=== PATIENT | male | born 1990 ===

== ENCOUNTER → 2016-04-20 | Outpatient (CLI) | payer OTHER ==
--- NOTE | 2016-04-20 15:53 | DIAGNOSTIC IMAGING REPORT ---
RIGHT ANKLE MIN 3 VIEWS CLINICAL HISTORY: Right Achilles tendon tear. COMPARISON: None FINDINGS: Alignment of the right ankle is anatomic. Talar dome is intact. There is no acute fracture. There is an os trigonum. Lateral view demonstrates thickening of the Achilles tendon with infiltration of the adjacent fat planes. IMPRESSION: 1. Suspected thickening of the Achilles tendon with infiltration of the adjacent fat planes. The findings raise the possibility of Achilles tendinopathy. Achilles tear is difficult to assess for by radiography. 2. No acute fracture or dislocation of the right ankle. Electronically signed by: Tristin Parmar M.D. 04/20/2016 3:51 PM Dictated Date/Time: 04/20/2016 3:49 PM
== END | disposition home or self-care (01) ==
LOC: C.RDSM 15:40
PROVIDERS: ATTEND Family Medicine
DX: S86.019A Strain of unspecified Achilles tendon, initial encounter (principal); X58.XXXA Exposure to other specified factors, initial encounter

== ENCOUNTER → 2016-04-27 | Day surgery (SDC) | payer OTHER ==
[2016-04-22 07:44] VITALS: Ht 190.5 cm; Wt 100.0 kg
[~2016-04-27] VITALS: Ht 190.5 cm; Wt 100.0 kg
[~2016-04-27] MED LIST: ATROPINE SULFATE 0.1 MG/ML 5ML SYR IV PRN; BUPIVACAINE/EPINEPHRINE 0.5% MPF 1:200,000 30 ML VIAL ONE; CEFAZOLIN 2000 MG/60 ML D5W IV SCH; DEXAMETHASONE SOD INJ 4 MG/ML VIAL IV PRN; DEXAMETHASONE SOD INJ 4 MG/ML VIAL ONE; EpHEDrine SULFATE INJ 50 MG/ML AMP IV PRN; FENTANYL CITRATE INJ 50 MCG/1 ML 2 ML VIAL IV PRN; FENTANYL CITRATE INJ 50 MCG/1 ML 2 ML VIAL ONE; GLYCOPYRROLATE INJ 0.2 MG/ML VIAL ONE; KETOROLAC TROMETHAMINE 30 MG/ML VIAL IV. PRN; LABETALOL HCL IV 5 MG/ML 20ML IV PRN; LACTATED RINGER'S 1000ML 1,000 ML IV SCH; LIDOCAINE HCL 1% 20 ML VIAL ONE; LIDOCAINE HCL 2% 2 ML VIAL (20MG/ML) ONE; METOCLOPRAMIDE HCL INJ 5 MG/ML 2 ML VIAL IV PRN; MIDAZOLAM HCL 1 MG/ML 2ML VIAL ONE; MoRPHine SULFATE 10 MG/ML CARP/VIAL IV PRN; MoRPHine SULFATE 2 MG/ML CARP IV PRN; MoRPHine SULFATE 4 MG/ML 1 ML CARP\\VIAL IV PRN; NEOSTIGMINE METHYLSULFATE 5 MG/5 ML SYR ONE; ONDANSETRON INJ 2 MG/ML 2 ML VIAL IV PRN; ONDANSETRON INJ 2 MG/ML 2 ML VIAL ONE; OXYCODONE/ACETAMINOPHEN 5-325 TAB PO PRN; PHENYLEPHRINE 100MCG/ML 5ML SYR IV PRN; PROPOFOL IV EMULSION 10 MG/ML 20 ML VIAL IV ONE; ROCURONIUM BROMIDE 10 MG/ML 5 ML VIAL ONE
--- NOTE | 2016-04-27 06:33 | History & Physical Bridge - SC ---
H&P Re-Evaluation Bridge Note: I have examined the patient, reviewed the History & Physical and in the interval since the performance of the History & Physical I have noted the following changes of clinical significance: No changes noted
--- NOTE | 2016-04-27 07:01 | Discharge Instructions-SurgCtr ---
Discharge Instructions Visit Reason for Visit: Right Achilles Rupture Discharge Discharge Diagnosis / Problem: S/P Right Achilles repair Discharge Goals Goal(s): Decrease discomfort, Improve function, Increase independence Activity Recommendations Activity Limitations: per Instructions/Follow-up section Lifting Limitations: none May Resume Sexual Activity: when tolerated Shower/Bathe: may shower/bathe in 3 days Driving or Machine Use: no limitations Weightbearing Status: Right non-weightbearing Anesthesia . Post Anesthesia Instructions: If you have had General Anesthesia or IV Sedation: * Do not drive today. * Resume driving when surgeon permits. * Do not make important decisions or sign legal documents today. * Call surgeon for: 1. Temperature elevations greater than 101 degrees F. 2. Uncontrollable pain. 3. Excessive bleeding. 4. Persistent nausea and vomiting. 5. Medication intolerance (nausea, vomiting or rash). * For nausea and vomiting use only clear liquids such as: tea, soda, bouillon until nausea subsides, then gradually increase diet as tolerated. * If you have any concerns or questions, call your surgeon's office. If physician is unavailable and it is an emergency, call 911 or go to the nearest emergency room. . Instructions / Follow-Up Instructions / Follow-Up See Dr. Grace in 10-15 days. Start PT in 2-3 days. Diet Recommendations Home Diet: resume previous diet Procedures Procedures Performed: s/p R Achilles repair Pending Studies Studies pending at discharge: no School Instructions Return To School: time frame (within 1 week) Medical Emergencies . Who to Call and When: Medical Emergencies: If at any time you feel your situation is an emergency, please call 911 immediately. . Non-Emergent Contact Non-Emergency issues call your: Surgeon Call Non-Emergent contact if: temperature is above 101.5, your pain is not controlled, wound has increased drainage, wound has increased redness . . "Provider Documentation" section prepared by Khurram Grace.
--- NOTE | 2016-04-27 09:23 | [facility] Post Operative Brief Note ---
Immediate Operative Summary Operative Date Apr 27, 2016. Pre-Operative Diagnosis Right Achilles Tendon Rupture Post-Operative Diagnosis Same Procedure(s) Performed Right Open Achilles Tendon Repair Surgeon Dr. Luciano Grace Natural Resource Officer Surgeon(s) Dr. Yamil Love Estimated Blood Loss 7 cc Findings Complete rupture Right Achilles Tendon. Fluids (cc crystalloids) 1000 Specimens None Drains n/a Anesthesia GET + Popliteal Block Complication(s) None Disposition Recovery Room / PACU (Stable)
--- NOTE | 2016-04-27 09:25 | [facility] Operative Report ---
Operative Report Operative Date Apr 27, 2016. Pre-Operative Diagnosis Right Achilles Tendon Rupture Post-Operative Diagnosis Same Procedure(s) Performed Right Open Achilles Tendon Repair Surgeon Dr. Luciano Grace Truck Body Repairer Surgeon(s) Dr. Yamil Love Estimated Blood Loss 7 cc Findings Complete rupture right Achilles tendon. Fluids (cc crystalloids) 1000 Specimens None Drains n/a Anesthesia GET + Popliteal Complication(s) None Disposition Recovery Room / PACU Implants FiberWire #2 Indications The patient is a 26 year old male who sustained a right Achilles tendon rupture while playing volleyball. After a lengthy discussion with the patient regarding her treatment options of conservative versus surgical intervention, the patient has elected to proceed with surgical intervention. The patient understands the risks of surgery, which include but are not limited to: bleeding , infection, re-operation, damage to nerves and arteries, continued pain, decreased level of activity, and DVT. The patient understands all of these instructions and explanations, all of their questions have been satisfactorily addressed. The patient has elected to proceed with surgery and the informed consent was signed. Description of Procedure The patient was taken to the Operating Room and after general anesthetic was administered a multidisciplinary time-out was performed identifying my initials on the right limb as the correct and operative limb, the patient was placed in the prone position on the operating table. Prior to the incision being made, 2 grams of intravenous Ancef was given. The right lower leg was prepped and draped in the standard sterile fashion. The Achilles tendon and defect were palpated and marked. The planned incision approximately 8 cm in length was marked just medial to the Achilles tendon. The incision was injected with a 50:50 mixture of 1% Lidocaine plain and 0.5% Marcaine with Epinephrine for a total of 10 cc. The planned incision was created exposing the peritenon and defect. The peritenon was incised to expose the ruptured Achilles tendon approximately 4 cm from its insertion on the calcaneus. There was fraying of both ends. Any adhesions were release to allow mobilization of the tendons ends. The wound was copiously irrigated. The anterior peritenon was released exposing the FHL, to allow easier closure of the posterior peritenon over the repaired tendon later. Placement of #2 FiberWire in [place] fashion with 4 strands in both ends was performed. The inferior limbs were tied first followed by the superior limbs in the standard fashion. The inferior limbs were tied first followed by the superior limbs in the standard fashion. One strand from each of the medial knots were tied together, then using a free needle the knot was docked inferiorly and a second strand was placed through the other limb of the tendon and tied inferiorly in an epi-tendinous type fashion, and tied. The sutures were cut short in the standard fashion. This was repeated on the lateral side, creating a stress 8 strand repair. The foot was able to be flexed easily to neutral without tension or gapping of the repair. Keanrs testing was now negative. The peritenon was closed sequentially with 2-0 Vicryl. The subcutaneous layer was closed with 3-0 Vicryl. The skin was closed with 3-0 Nylon in horizontal mattress fashion. Xeroform was placed over top, followed by 4x4's, ABD, sterile cast padding, and posterior splint. The sponge and needle counts were correct. Post-op Instructions: Pain medicine prescription was given pre-operatively to be taken as needed. The patient will follow up with me in 10-15 days. The patient will remain NWB RLE for 2 weeks. The patient will start rehab in 2 days and will have the splint removed and replaced with a cam boot and heel lift. I attest to the content of the Intraoperative Record and any orders documented therein. Any exceptions are noted below.
--- NOTE | 2016-04-27 09:55 | [facility] Operative Report ---
Operative Report Operative Date Apr 27, 2016. Pre-Operative Diagnosis Right Achilles Tendon Rupture Post-Operative Diagnosis Same Procedure(s) Performed Right Open Achilles Tendon Repair Surgeon Dr. Luciano Grace Menswear Salesperson Surgeon(s) Dr. Yamil Love, Mitesh Mrate PA-C Estimated Blood Loss 7 cc Findings same Fluids (cc crystalloids) 1000 Specimens None Drains none Anesthesia general, block Complication(s) None Disposition Recovery Room / PACU Implants none Indications sustained injury to right lower extremity, ultrasound obtained, surgery recommended, consents signed. Description of Procedure taken to the OR, prepped and draped I was present the entire case, please see Dr. Grace's op note for further detail. I attest to the content of the Intraoperative Record and any orders documented therein. Any exceptions are noted below.
[2016-04-27 11:20] VITALS: TEMP 36.5
--- NOTE | 2016-04-27 11:32 | Anesthesia Progress Nt - [facility] ---
Anesthesia Post Op Note Date & Time Apr 27, 2016 at 11:32 Vital Signs Pain Intensity: 0 Vital Signs Past 12 Hours Date Time Temp Pulse Resp B/P Pulse Ox O2 Delivery O2 Flow Rate FiO2 04/27/16 11:20 36.5 77 16 115/66 96 Room Air 04/27/16 11:13 137/77 04/27/16 11:11 71 20 04/27/16 11:11 70 20 97 04/27/16 11:10 75 21 04/27/16 11:10 75 21 97 04/27/16 11:08 138/72 04/27/16 11:06 79 12 98 04/27/16 11:06 74 12 99 04/27/16 11:05 36.4 77 17 133/72 98 Room Air 04/27/16 11:03 133/72 04/27/16 10:58 139/73 04/27/16 10:56 72 20 98 04/27/16 10:56 73 20 04/27/16 10:53 130/75 04/27/16 10:51 68 20 97 04/27/16 10:51 63 19 97 04/27/16 10:48 133/71 04/27/16 10:43 140/68 04/27/16 10:41 65 19 96 04/27/16 10:41 68 21 97 04/27/16 10:38 134/74 04/27/16 10:36 67 21 04/27/16 10:36 66 21 97 04/27/16 10:33 139/80 04/27/16 10:28 141/73 04/27/16 10:26 83 17 100 04/27/16 10:26 75 18 98 04/27/16 10:23 142/76 04/27/16 10:21 68 26 100 04/27/16 10:21 68 26 04/27/16 10:18 149/86 04/27/16 10:13 143/76 04/27/16 10:11 81 20 100 04/27/16 10:11 74 21 99 04/27/16 10:08 146/79 04/27/16 10:06 69 22 04/27/16 10:06 69 22 99 04/27/16 10:03 137/83 04/27/16 10:00 36.4 78 22 154/83 100 Mask 6 04/27/16 09:58 154/83 04/27/16 07:15 0 04/27/16 07:10 82 04/27/16 07:10 82 19 100 04/27/16 07:08 137/73 04/27/16 07:08 77 21 129/77 100 Mask 3 04/27/16 07:06 129/77 04/27/16 06:34 37.2 83 18 139/79 98 Room Air Notes Mental Status: alert / awake / arousable, participated in evaluation Pt Amnestic to Procedure: Yes Nausea / Vomiting: adequately controlled Pain: adequately controlled Airway Patency, RR, SpO2: stable & adequate BP & HR: stable & adequate Hydration State: stable & adequate Anesthetic Complications: no major complications apparent
[2016-04-27 12:04] VITALS: BP 116/61; PULSE 85; O2SAT 97
== END | disposition home or self-care (01) ==
LOC: X.SURG 06:11
PROVIDERS: ATTEND Orthopaedic Surgery Sports Medicine
DX: S86.011A Strain of right Achilles tendon, initial encounter (principal); Y93.68 Activity, volleyball (beach) (court); Y92.89 Other specified places as the place of occurrence of the external cause